=== PATIENT | male | born 1995 | race Asian ===

== ENCOUNTER 2021-07-23 17:18 | Emergency (ER) | payer OTHER ==
[~2021-07-23] VITALS: Ht 175.3 cm; Wt 136.1 kg
[2021-07-23 17:18] VITALS: BP 109/67; TEMP 99
[2021-07-23 18:04] LABS: PLATELET COUNT 130 K/uL (142-355)
== END 2021-07-23 19:11 ==
LOC: ED 17:18
PROVIDERS: Emergency Medicine Emergency Medical Services
DX: U07.1 COVID-19 (principal)
CPT/HCPCS: 80053; 85027; 96372; 99283; J1100